=== PATIENT | male | born 1980 | race Caucasian/White ===

== ENCOUNTER 2017-12-26 07:31 | Emergency (ER) | payer MEDICAID ==
[~2017-12-26] VITALS: Ht 162.6 cm; Wt 70.3 kg
[~2017-12-26 07:31] MED LIST: INSULIN PUMP; LEVEMIR FL100 UNIT/1 SQ; LOVA40; Percocet 5-3251 EACH PO
[2017-12-26 08:02] LABS: BASOPHILS ABSOLUTE AUTO 0.01 K/mm3 (0.00-0.23); BASOPHILS PERCENT AUTO 0 % (0-2); EOSINOPHILS PERCENT AUTO 0 % (0-6); Hematocrit 38.6 % (37.0-53.0); Hemoglobin 12.6 g/dL (13.5-17.5); IMMATURE GRAN ABSOLUTE AUTO 0.02 K/mm3 (0.00-0.10); IMMATURE GRAN PERCENT AUTO 0 % (0-1); LYMPHOCYTES ABSOLUTE AUTO 0.57 K/mm3 (0.84-5.20); LYMPHOCYTES PERCENT AUTO 8 % (21-46); MONOCYTES ABSOLUTE AUTO 0.14 K/mm3 (0.16-1.47); MONOCYTES PERCENT AUTO 2 % (4-13); Mean Corpuscular HGB Conc 32.6 g/dL (31.5-36.5); Mean Corpuscular Volume 92 fL (80-100); Mean Platelet Volume 9.3 fL (9.1-12.4); NEUTROPHILS ABSOLUTE AUTO 6.42 K/mm3 (1.96-9.15); NEUTROPHILS PERCENT AUTO 90 % (41-73); Platelet Count 245 K/mm3 (150-400); RDW Coefficient Variation 13.6 % (11.7-14.2); RDW Standard Deviation 45.1 fL (35.1-46.3); White Blood Cell Count 7.16 K/mm3 (4.00-11.30)
[2017-12-26 08:19] LABS: Alanine Aminotransfer (ALT/SGP 41 U/L (12-78); Albumin, Blood 3.2 g/dL (3.4-5.0); Albumin/Globulin Ratio 0.9 (0.8-1.8); Alk Phos 143 U/L (50-136); Anion Gap 11 mmol/L (6-16); Aspartate Aminotrans (AST/SGOT 14 U/L (12-37); Bilirubin, Total 0.4 mg/dL (0.1-1.0); Blood Urea Nitrogen 15 mg/dL (8-24); Bun/Creatinine Ratio 20.9 (12.0-20.0); CO2, Blood 24 mmol/L (21-32); Calcium, Blood 8.5 mg/dL (8.5-10.1); Chloride, Blood 100 mmol/L (98-108); Creatinine, Blood 0.72 mg/dL (0.60-1.20); Globulin, Blood 3.5 g/dL (2.2-4.0); Glomerular Filtration Rate >60 (60-); Glucose, Blood 316 mg/dL (70-99); Sodium, Blood 135 mmol/L (136-145); Total Protein, Blood 6.7 g/dL (6.4-8.2)
[2017-12-26 08:36] LABS: Source, Urine Clean Catch
[2017-12-26 08:49] LABS: Bilirubin, Urine Neg (Neg); Blood, Urine Neg (Neg); Glucose Qualitative, Urine 4+ (Neg); Ketones, Urine 2+ (Neg); Leukocyte Esterase, Urine 1+ (Neg); Nitrite, Urine Pos (Neg); Protein, Urine Neg (Neg); Urobilinogen, Urine NORM (Normal)
[2017-12-26 08:58] LABS: Appearance, Urine Clear (Clear); Color, Urine Yellow (P-Yellow)
[2017-12-26 09:04] LABS: Bacteria Many /hpf; Squamous Epithelial Cells Rare /hpf (Few)
[2017-12-26 09:09] LABS: Amorphous Mod (0-Heavy)
[2017-12-26] MEDS ORDERED: Zofran Odt4 MG SL (09:16)
== END 2017-12-26 09:48 | disposition home or self-care (01) ==
LOC: ER 07:31
PROVIDERS: Physician Assistant
DX: R11.2 Nausea with vomiting, unspecified (principal); Z88.0 Allergy status to penicillin; Z79.4 Long term (current) use of insulin; Z79.899 Other long term (current) drug therapy; E10.9 Type 1 diabetes mellitus without complications
CPT/HCPCS: 80053; 81001; 83690; 85025; 87077; 87086; 87147; 87186; 96361; 96374; 96375; 99284-25; J2405; J2550; J7030

== ENCOUNTER 2020-06-13 07:19 | Emergency (ER) | payer BC ==
[~2020-06-13] VITALS: Ht 160 cm; Wt 86.2 kg
[~2020-06-13 07:19] MED LIST changes: -LEVEMIR FL100 UNIT/1 SQ; +LEVEMIR FL100 UNIT/2 SC; +Zofran Odt4 MG SL
[2020-06-13] MEDS ORDERED: HYDHCL25 PO (07:35)
[2020-06-13] MEDS ORDERED: PRAZ1 PO (07:35)
[2020-06-13] MEDS ORDERED: DESV50 PO (07:36)
[2020-06-13] MEDS ORDERED: MELATONIN5 M1 PO (07:36)
[2020-06-13] MEDS ORDERED: LAMO100 PO (07:36)
[2020-06-13] MEDS ORDERED: LISI20 PO (07:36)
[2020-06-13] MEDS ORDERED: ACETAMINOPHEN500 MG PO (08:21)
[2020-06-15] MEDS ORDERED: Aspir 8181 MG PO (09:17)
[2020-06-15] MEDS ORDERED: Glucagon Emergen1 MG IM (09:18)
[2020-06-15] MEDS ORDERED: TOUJEO SOL300 UNIT/2 SC (09:19)
[2020-06-15] MEDS ORDERED: HUMALOG100 UNIT/1 (09:20)
== END 2020-06-13 08:45 | disposition home or self-care (01) ==
LOC: ER 07:19
DX: S82.852A Displaced trimalleolar fracture of left lower leg, initial encounter for closed fracture (principal); E10.9 Type 1 diabetes mellitus without complications; Z79.899 Other long term (current) drug therapy; Z88.0 Allergy status to penicillin; W00.0XXA Fall on same level due to ice and snow, initial encounter; Y93.K1 Activity, walking an animal
CPT/HCPCS: 29515; 73610; 99283-25

== ENCOUNTER 2020-06-20 13:22 | Day surgery (SDC) | payer BC ==
[~2020-06-20] VITALS: Ht 160 cm; Wt 86.1 kg
[~2020-06-20 13:22] MED LIST changes: +ACETAMINOPHEN500 MG PO; +Aspir 8181 MG PO; +DESV50 PO; +Glucagon Emergen1 MG IM; +HUMALOG100 UNIT/1; +HYDHCL25 PO; +LAMO100 PO; +LISI20 PO; +MELATONIN5 M1 PO; +PRAZ1 PO; +TOUJEO SOL300 UNIT/2 SC
--- NOTE | 2020-06-20 14:38 | NUR ---
06/20/20 1438 LILLIE DANIEL, RN IN ROOM WITH DR. MLULEN FOR POPLITEAL BLOCK. PT VSS ON ROOM AIR. ENGAGED IN PRE OP AND POST OP TEACHING WELL EDUCATED PT ON NERVE BLOCK PROCESS. PT IS AGREEABLE AND ALL QUESTIONS ASKED AND ANSWERED.
== END 2020-06-20 17:33 | disposition home or self-care (01) ==
LOC: ORSCSDS 13:22
PROVIDERS: Orthopaedic Surgery
PROC: 0QSH04Z Reposition Left Tibia with Internal Fixation Device, Open Approach (ICD-10-PCS; principal; 2020-06-20 14:45)
PROC: 0QSK04Z Reposition Left Fibula with Internal Fixation Device, Open Approach (ICD-10-PCS; principal; 2020-06-20 14:45)
DX: S82.842A Displaced bimalleolar fracture of left lower leg, initial encounter for closed fracture (principal); I10 Essential (primary) hypertension; E10.9 Type 1 diabetes mellitus without complications; Z79.4 Long term (current) use of insulin; Z79.899 Other long term (current) drug therapy
CPT/HCPCS: 82947; C1713; C1769; J0171; J0690; J1885; J2250; J2704; J3010; J7120